=== PATIENT | female | born 1985 | race African-American/Black ===

== ENCOUNTER 2017-05-29 19:41 | Emergency (ER) | payer SELFPAY ==
[2017-05-29] MEDS ORDERED: CLINDAMYCIN PHOSPHATE 300 MG/2 ML VIAL IM ONE (20:01)
[2017-05-29] MEDS ORDERED: KETOROLAC TROMETHAMINE 60 MG/2 ML VIAL IM ONE (20:04)
--- NOTE | 2017-05-29 20:04 | ED Physician Documentation ---
Sore Throat/Dental Pain - HISTORIAN Historian: patient - HPI Stated Complaint: DENTAL ABSCESS Chief Complaint: Dental Pain Onset: days ago Context: Abscess Further Comments: yes (31 year old female patient presents with left facial edema. Patient states she was seen in another ER a few days (Tuesday) and prescribed amoxil, states her face has gotten worse. Requesting pain medication. ) - ROS CONST: no problems CVS/RESP: none GI/: denies: nausea, vomiting NEURO/PSYCH: none - PAST HX Past History: none Other History: none Allergies/Adverse Reactions: Allergies Allergy/AdvReac Type Severity Reaction Status Date / Time No Known Allergies Allergy Verified 05/29/17 19:50 Home Medications: Ambulatory Orders Medication Instructions Recorded Naproxen [Naprosyn] 500 mg PO TID 05/29/17 - SOCIAL HX Smoking History: non-smoker - FAMILY HX Family History: No - VITAL SIGNS Vital Signs: Vital Signs Temp Pulse Resp BP Pulse Ox 97.6 F 68 16 106/69 98 05/29/17 19:45 05/29/17 19:45 05/29/17 19:45 05/29/17 19:45 05/29/17 19:45 - REVIEWED ASSESSMENTS Nursing Assessment Reviewed: Yes Vitals Reviewed: Yes Progress - Progress Progress: Patient does not have dental or prescription insurance. Requests medication off $4 list. Explained she needed broader and stronger coverage. Coupon for 18.62 for Shay fu, patient states she can go to [place] for prescription, cannot afford $30 at [facility]. IM Clindamycin given in Er. ED Results Lab/Radiology - Orders Orders: ED Orders Category Date Time Status Clindamycin Phosphate [Cleocin] Med 05/29/17 20:01 Once 600 mg IM NOW ONE Dental Pain Physical Exam - EXAM General Appearance: mild distress Head/Neck: mandibular swelling (L), maxillary swelling (L) Mouth/Throat: gum swelling around teeth (left ), widespread dental decay Respiratory: no resp. distress CVS: reg. rate & rhythm Skin: normal color, warm/dry, NR, INT, PAL, DR Neuro/Psych: No: weakness Discharge Clincal Impression: Dental abscess Referrals: Primary Doctor,No [Primary Care Provider] - 2 Days Additional Instructions: Ibuprofen 800mg every 8 hours x 3 days Tylenol 650-1000mg every 4 hours as needed for pain, limit your dose to 4G in 24 hours. Over the counter [employer]Tek - follow package directions. 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 See your dentist as soon as possible Condition: Stable Disposition: 01 HOME, SELF-CARE Decision to Admit: NO Decision Time: 20:05
[2017-05-29 20:41] VITALS: BP 110/68
== END 2017-05-29 20:20 | disposition home or self-care (01) ==
LOC: ED 19:41
DX: K04.7 Periapical abscess without sinus (principal)
CPT/HCPCS: J1885; J3490; 96372; 99283

== ENCOUNTER 2019-05-01 12:25 | Emergency (ER) | payer MEDICAID, OTHER ==
[2019-05-01 12:52] VITALS: BP 141/83
--- NOTE | 2019-05-01 13:19 | ED Physician Documentation ---
Female Urogenital Problems - HISTORIAN Historian: patient - HPI Stated Complaint: vaginal bleeding x 3 months Chief Complaint: Female Urogenital Problems Additional Information: Patient presents to ED with a 3 months history of vaginal bleeding and urinary urgency. Yesterday she began to have low back pain, radiating into upper legs. Onset: days ago (90) Severity: mild Location of Pain: low back pain - Vaginal Bleeding Abnormal Bleeding Started: 01/01/19 Compared to Menstrual Periods: spotting Description of Menstrual: irregular period(s) - Associated Symptoms Urinary Symptoms: urgency w/ urination - ROS CONST: none GI/: nausea, diarrhea CVS/RESP: denies: chest pain, shortness of breath EYES/ENT: none NEURO/PSYCH: none MS/SKIN/LYMPH: none - PAST HX Past History: none Other History: none Surgeries/Procedures: none Allergies/Adverse Reactions: Allergies Allergy/AdvReac Type Severity Reaction Status Date / Time No Known Allergies Allergy Verified 05/01/19 12:52 Home Medications: Ambulatory Orders Medication Instructions Recorded Ketorolac Tromethamine [Toradol] 10 mg PO Q6H PRN #20 tablet 05/01/19 Ketorolac Tromethamine [Toradol] 10 mg PO Q6H PRN #20 tablet 05/01/19 - SOCIAL HX Smoking History: non-smoker Alcohol Use: none Drug Use: none - FAMILY HX Family History: none - VITAL SIGNS Vital Signs: Vital Signs Temp Pulse Resp BP Pulse Ox 97.1 F L 95 H 16 141/83 99 05/01/19 12:28 05/01/19 12:28 05/01/19 12:28 05/01/19 12:28 05/01/19 12:28 - REVIEWED ASSESSMENTS Nursing Assessment Reviewed: Yes Vitals Reviewed: Yes Female Urogenital Problems - EXAM General Appearance: no acute distress, alert EENT: ARIEL Neck: nml inspection Respiratory: no resp. distress, breath sounds nml CVS: reg rate & rhythm, heart sounds normal Abdomen: soft, non-tender, no distention, nml bowel sounds Back: non-tender. No: vertebral point-tendernes, CVA tenderness Skin: color nml, no rash, warm,dry Extremities: non-tender, normal range of motion, no edema Neuro: oriented X3, motor nml, mood/affect nml Discharge Clincal Impression: Abnormal vaginal bleeding Prescriptions: Ketorolac Tromethamine [Toradol] 10 mg PO Q6H PRN #20 tablet PRN Reason: pain Ketorolac Tromethamine [Toradol] 10 mg PO Q6H PRN #20 tablet PRN Reason: pain Referrals: Primary Doctor,No [Primary Care Provider] - 2 Days Additional Instructions: 1. 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 Toradol every 6 hours as needed for pain 3. Follow up with PCP within 1 week 4. Return to ER for new or worsening symptoms Condition: Stable Disposition: 01 HOME, SELF-CARE Decision to Admit: NO Date of Decison to Admit: 05/01/19 Decision Time: 14:31
[2019-05-01 14:15] LABS: APPEARANCE,URINE CLOUDY (CLEAR); COLOR,URINE RED (YELLOW); OCCULT BLOOD,URINE 3+ (NEGATIVE); UROBILINOGEN URINE 0.2 Eu (0.2-1.0); eGFR (Non-African) > 60
[2019-05-01 14:24] LABS: ANISOCYTOSIS 1+ (NEGATIVE); BASOPHILS % 0.4 % (0.0-1.5); GIANT PLATELETS PRESENT (NEGATIVE); HYPOCHROMASIA 1+ (NEGATIVE); SEGMENTED NEUTROPHILS % 71 % (39-79)
== END 2019-05-01 14:31 | disposition home or self-care (01) ==
LOC: ED 12:25
DX: N93.9 Abnormal uterine and vaginal bleeding, unspecified (principal)
CPT/HCPCS: 80053; 81002; 84703; 85025; 99283; 99284

== ENCOUNTER 2019-06-13 20:04 | Emergency (ER) | payer MEDICAID, OTHER ==
--- NOTE | 2019-06-13 20:06 | ED Physician Documentation ---
General Adult - HISTORIAN Historian: patient - HPI Stated Complaint: abscess of left tooth x 1 week Chief Complaint: Dental Pain Onset: days ago (5) Timing: still present, worse Severity: moderate Further Comments: yes (She notes an area in her mouth that was causing pain and on Tuesday she went to the [facility] and she was given antibiotics where s he does not feel there was improvement (although the med was ordered 4 x per day and she was taking 2 x per day) No fever. She is taking OTC meds without improvement. She does note increased swelling on left side of face) - ROS CONST: no problems CVS/RESP: none GI/: none MS/SKIN/LYMPH: none NEURO/PSYCH: denies: headache - PAST HX Past History: none Immunizations: UTD Allergies/Adverse Reactions: Allergies Allergy/AdvReac Type Severity Reaction Status Date / Time No Known Allergies Allergy Verified 05/01/19 12:52 Home Medications: Ambulatory Orders Medication Instructions Recorded Ketorolac Tromethamine [Toradol] 10 mg PO Q6H PRN #20 tablet 05/01/19 Ketorolac Tromethamine [Toradol] 10 mg PO Q6H PRN #20 tablet 05/01/19 - SOCIAL HX Smoking History: non-smoker Alcohol Use: none Drug Use: none - FAMILY HX Family History: No - VITAL SIGNS Vital Signs: Vital Signs Temp Pulse Resp BP Pulse Ox 141/83 05/01/19 14:31 - REVIEWED ASSESSMENTS Nursing Assessment Reviewed: Yes Vitals Reviewed: Yes Progress - Progress Progress: 2210: Discussed results - she needs PCP eval for anemia DG General Adult Physical Exam - PHYSICAL EXAM GENERAL APPEARANCE: no distress EENT: eye inspection normal, ENT inspection normal, pharynx normal, no signs of dehydration, other (left lower back tooth with white drainage with mild facial swelling ) NECK: normal inspection RESPIRATORY: no resp distress, chest non-tender, breath sounds normal CVS: reg rate & rhythm, heart sounds normal ABDOMEN: soft, no distension SKIN: warm/dry, normal color EXTREMITIES: non-tender, normal range of motion, no evidence of injury, no edema NEURO: oriented X3 Discharge Clincal Impression: Dental abscess Referrals: Primary Doctor,No [Primary Care Provider] - 2 Days Comments: 1. Clindamycin 300 mg take 1 by mouth four times per day 2. Ibuprofen 800 mg take 1 by mouth every 12 hours as needed for pain 3. Follow up with Dentist on your appt Tuesday 4. Return to ER for any increased concerns Condition: Stable Disposition: 01 HOME, SELF-CARE Decision to Admit: NO Date of Decison to Admit: 06/13/19 Decision Time: 22:14
[2019-06-13] MEDS ORDERED: 0.9 % SODIUM CHLORIDE 1,000 ML IV ONE (20:41)
[2019-06-13] MEDS ORDERED: KETOROLAC TROMETHAMINE 30 MG/1ML VIAL IV ONE (20:41)
[2019-06-13 20:50] VITALS: BP 125/77
--- NOTE | 2019-06-13 22:04 | Diagnostic Imaging Report ---
PATIENT MR#: [id number] PATIENT PATIENT NAME: RANULFO SWEET DATE OF : 1985 REFERRING PHYSICIAN: Subha Serna EXAM DATE: 06/13/2019 ACCESSION NUMBER: [id number] EXAM DESCRIPTION: CT MAXILLOFACIAL W/O D CT maxillofacial without contrast History: Dental pain Findings: Transverse mandible and facial bones sections are obtained without contrast. A large cavi ty is present in the left 3rd mandibular molar. There is no evidence of periapical lucency or sinus opacification. N o significant soft tissue swelling is observed. The orbits and osseous structures are otherwise normal. Impression: Large left mandibular molar cavity. Otherwise normal. Read by: Dr. Doc Black Transcribed by: Transcribed Date: Electronically signed by: Dr. Doc Black Date signed: 06/13/2019 10:03:43 PM
[2019-06-13] MEDS ORDERED: CLINDAMYCIN HCL 150 MG CAPSULE PO ONE (22:08)
[2019-06-14 07:16] LABS: eGFR (Non-African) > 60
[2019-06-14 08:20] LABS: BASOPHILS % 0.3 % (0.0-1.5); NEUTROPHILS # 5.7 # k/uL (1.4-7.7)
[2019-06-14 08:21] LABS: ANISOCYTOSIS 1+ (NEGATIVE); HYPOCHROMASIA 1+ (NEGATIVE); OVALOCYTES 1+ (NEGATIVE)
== END 2019-06-13 22:30 | disposition home or self-care (01) ==
LOC: ED 20:04
DX: K04.7 Periapical abscess without sinus (principal)
CPT/HCPCS: 70486; 80053; 81025; 85025; 96361; 96374; 99283; 99284; A9270; J1885; J7030; S1016